=== PATIENT | female | born 1930 | race Caucasian/White ===

== ENCOUNTER 2017-07-07 10:49 | Outpatient (CLI) | payer MEDICARE, OTHER ==
[2016-03-12 15:08] VITALS: BP 147/67
== END 2017-07-07 10:50 ==
LOC: POD 10:49
PROVIDERS: ATTEND Podiatrist Public Medicine
DX: L60.0 Ingrowing nail (principal); B35.1 Tinea unguium; M79.674 Pain in right toe(s); M79.675 Pain in left toe(s); L84 Corns and callosities; M20.42 Other hammer toe(s) (acquired), left foot
CPT/HCPCS: 11721; G0463

== ENCOUNTER 2017-11-25 10:53 | Outpatient (CLI) | payer MEDICARE, OTHER ==
[2016-03-12 15:08] VITALS: BP 147/67
--- NOTE | 2017-11-25 15:28 | Diagnostic Imaging Report ---
WALE STAFF[facility] [address] [facility] [address] [place], [place]. [address] Report Submission Date: Nov 25, 2017 12:10:06 PM SOLE TIER Patient Study Name: EMANUEL REYNA Date: Nov 25, 2017 11:03:15 AM SOLE TIER Modality Type: CT\SR Gender: F Description: CT ARM W/O CONTRAST : 32 Institution: [facility] Physician: WALE STAFFORD Examination: CT right extremity. History: CT RT SHOULDER - NO KNOWN INJURY, PAIN X 2 MONTHS, WORSE WITH LIFTING ASSIST UNDER ARM (Hx) / INFERIOR MEDIAL DISLOCATION OF THE HUMERAL HEAD (DICOM Hx) Comparison exams: None provided. Technique: Axial imaging with sagittal and coronal reconstruction. Findings: Extensive degenerative changes and narrowing involving the glenohumeral articulation. Significant osteophyte formation involving the acromioclavicular joint. No definite avulsed fracture fragments. Significant widening of the humeral acromial space with what appears to be a fluid density. Faint calcific densities involving the margins of the fluid collection. Remainder of the visualized scapula, clavicle, and rib cortical margins are without gross abnormality. Minimal lung dependent atelectasis. No gross effusion. Impression: Advanced articular degenerative changes. No evidence for dislocation or avulsed fracture fragment. Large fluid/soft tissue density superior to the humeral head - likely large joint effusion. If suspected rotator cuff injury and/or labral tear, consider obtaining MRI shoulder or CT arthrogram if clinically warranted. Electronically signed on Nov 25, 2017 12:10:06 PM SOLE TIER by: Wander ANGELES
== END 2017-11-25 10:54 ==
LOC: RAD 10:53
PROVIDERS: ATTEND Family Medicine
DX: M25.411 Effusion, right shoulder (principal)
CPT/HCPCS: 73200

== ENCOUNTER 2018-09-27 12:55 | Emergency (ER) | payer MEDICARE, OTHER ==
--- NOTE | 2018-09-27 13:10 | ED Physician Documentation ---
Altered Mental Status - HISTORIAN Historian: patient, paramedics - [facility] Stated Complaint: "I am having bladder spasms" Chief Complaint: Altered Mental Status Additional Information: Patient presents to ED via EMS from nursing facility. She has had a decline in mental status since Wednesday. For the past 5 days she has been "spacing off" with staff reporting having difficulty "snapping her out of it". Patient complains of bladder spasms, burning with urination, cold like symptoms, hemorrhoids causing pain with BM this morning. Family reports patient has a history of rectal prolapse, bladder prolaspe, and anxiety. Patient denies chest pain, shortness of breath, fever, chills or night sweats. Further comments from family states, ongoing anxiety and difficulty dealing with being in assisted and not being able to walk well. Onset: days ago (5) Duration: gradual onset Last known Well Date: 09/22/18 Last Known Well Time: 17:00 Last known Well Code/Unknown Code: Known Character of Altered Mental Status: other (staying bed ) Context: assisted resident Cognition is Usually: alert, oriented x3 Gait is Usually: walks w/ assistance only Associated Symptoms: decreased ability to walk - ROS EYES/ENT: none CVS/RESP: cough. denies: chest pain, shortness of breath GI/: abdominal pain, problems urinating (dysuria/bladder spasms) MS/SKIN/LYMPH: denies: ankle swelling NEURO/PSYCH: anxiety. denies: headache - PAST HX Past History: other (anxiety) Other History: other (rectal prolapse, uterine prolaspe, frequent UTI) Allergies/Adverse Reactions: Allergies Allergy/AdvReac Type Severity Reaction Status Date / Time rofecoxib Allergy Verified 09/27/18 13:27 Home Medications: Ambulatory Orders Medication Instructions Recorded Aspirin [Humaira] 81 mg PO DAILY 03/13/15 Cholecalciferol (Vitamin D3) 1 tab PO DAILY 09/27/18 [Vitamin D3] Hydrocortisone 2.5% Rectal 28.35 gm RC TID PRN #1 tube 09/27/18 [Proctosol-Hc 2.5% Rectal] Ipratropium/Albuterol Sulfate 3 ml INH PRN PRN 09/27/18 [Duoneb] Mirtazapine [Remeron] 15 mg PO HS #30 tablet 09/27/18 Sertraline HCl [Zoloft] 1 tab PO DAILY 09/27/18 - SOCIAL HX Smoking History: non-smoker Alcohol Use: none Drug Use: none - FAMILY HX Family History: none - VITAL SIGNS Vital Signs: Vital Signs Temp Pulse Resp BP Pulse Ox 98.3 F 86 15 138/61 95 09/27/18 12:55 09/27/18 12:55 09/27/18 12:55 09/27/18 12:55 09/27/18 12:55 - REVIEWED ASSESSMENTS Nursing Assessment Reviewed: Yes Vitals Reviewed: Yes Progress - Progress Progress: 1428 Patient resting comfortably. Discussing results with family. Patient begins to cry, complaining of rectal pain. Patient states she had a very large bowel movement this morning and now her hemorrhoids hurt. 1448 Discussed with family about starting Remeron. They are willing to try anything to help with anxiety. ED Results Lab/Radiology - Lab Results Lab Results: Lab Results 09/27/18 09/27/18 09/27/18 Unknown Unknown Unknown WBC 7.70 K/ul K/ul (4.00-12.00) RBC 4.23 M/ul M/ul (3.90-5.20) Hgb 12.8 g/dL g/dL (12.0-16.0) Hct 38.7 % % (34.5-46.5) MCV 92.0 fl fl (80.0-100.0) MCH 30.3 pg pg (28.0-34.0) MCHC 33.1 g/dL g/dL (30.0-36.0) RDW 13.6 % % (11.3-14.3) Plt Count 306 K/mm3 K/mm3 (130-400) Neut % (Auto) 62.2 % % (39.0-79.0) Lymph % (Auto) 28.5 % % (16.0-50.0) Potter % (Auto) 5.2 % % (0.0-11.0) Eos % (Auto) 3.8 % % (0.0-6.8) Baso % (Auto) 0.3 (0.0-1.5) Neut # (Auto) 4.8 # k/uL # k/uL (1.4-7.7) Lymph # (Auto) 2.2 # k/uL # k/uL (0.6-4.0) Potter # (Auto) 0.4 # k/uL # k/uL (0.0-0.9) Eos # (Auto) 0.3 # k/uL # k/uL (0.0-0.6) Baso # (Auto) 0.0 # k/uL # k/uL (0.0-0.5) Sodium 140 mmol/L mmol/L (136-145) Potassium 4.8 mmol/L mmol/L (3.5-5.1) Chloride 96 mmol/L L mmol/L (98-107) Carbon Dioxide 33 mmol/L H mmol/L (22-30) BUN 25 mg/dL H mg/dL (7-17) Creatinine 1.10 mg/dL H mg/dL (0.52-1.04) Estimated Creat Clear 53 Est GFR ( Amer) > 60 (60 - ) Est GFR (Non-Af Amer) > 60 (60 - ) Glucose 99 mg/dL mg/dL (74-106) Calcium 9.6 mg/dL mg/dL (8.4-10.2) Total Bilirubin 0.6 mg/dL mg/dL (0.2-1.3) AST 30 U/L U/L (15-46) ALT 25 U/L U/L (13-69) Alkaline Phosphatase 104 U/L U/L (38-126) NT-Pro-B Natriuret Pep 906.8 pg/mL H pg/mL (15.0-450.0) Total Protein 7.0 g/dL g/dL (6.3-8.2) Albumin 4.6 g/dL g/dL (3.5-5.0) UA Negative - Radiology Radiology Impressions: Examination: Portable chest History: Evaluate lungs COUGH, CONGESTION, LATHARGY (Hx) Comparison exam: None provided. Findings: Single view of the chest demonstrates a hypoventilated inspiratory effort Sylvian crowding of the cardiac and mediastinal silhouette. Vascular calcifications involving aortic arch. Lung martin without focal infiltrate. No blunting of the costophrenic margins. Articular degenerative changes. Impression: No acute appearing pulmonary process. Electronically signed on Sep 27, 2018 2:13:17 PM CORE WORKER by: Wander Castanon Examination: CT chest History: Cough Comparison exams: Plain film chest dated 27 September 2018 Technique: CT chest without contrast protocol Findings: Chronic parenchymal scarring. No focal consolidative process. Minimal dependent atelectasis. No posterior pleural thickening or effusion. Anterior mediastinum and jose without mass pathologic adenopathy though sensitivity is reduced given exam technique. Thoracic aorta demonstrates peripheral atherosclerotic disease. No aneurysm. Cardiac silhouette is not enlarged. No pericardial effusion. Vascular calcifications. Lower neck structuresare without gross abnormality. Kyphosis. Thoracic vertebral body degenerative changes. Hiatal hernia. Impression: Chronic parenchymal changes and scarring. No acute appearing parenchymal process. Examination: CT Abdomen/pelvis History: Abdominal discomfort. Comparison exams: None available Technique: CT Abdomen/pelvis without contrast protocol. Findings: Liver, spleen, adrenals and pancreas are without gross irregularity. Surgical clips gallbladder fossa. Renal cortical margins are symmetric. No cortical or calyceal calcification. Ureters described a normal course through the abdomen and pelvis. No abnormal dilation. No central calcifications. Ureterovesicular junctions are within normal limits. Pelvic phleboliths. Abdominal aorta demonstrates peripheral atherosclerotic disease. No aneurysm. Bowel unopacified limiting evaluation. No mesenteric inflammatory changes or free fluid. Stool throughout the large bowel. Few small bowel air-fluid levels without abnormal dilation. Osseous structures demonstrate degenerative changes. L5/S1 with feces. Impression: No acute appearing upper abdominal organ inflammatory process given exam technique. Small bowel air-fluid levels however no abnormal dilation. Moderate stool throughout the large bowel. No nephro or ureterolithiasis. Electronically signed on Sep 27, 2018 4:13:43 PM CORE WORKER by: Wander Castanon - Orders Orders: ED Orders Category Date Time Status In & Out Catheter [Urinary catheterization] 1T Care 09/27/18 13:[address] IV Lock 1T Care 09/27/18 12:58 Active CHEST 1VIEW [RAD] Stat Exams 09/27/[address] ABD & PELVIS W/O CON Stat Exams 09/27/[address] CHEST W/O CONTRAST Stat Exams 09/27/18 Taken BLOOD CULTURE Stat Lab 09/27/18 Ordered CBC/PLATELET/DIFF Routine Lab 09/27/18 Completed CMP Routine Lab 09/27/18 Completed NT-proBNP Stat Lab 09/27/18 Completed UA W/MICRO IF INDICATED Routine Lab 09/27/18 13:00 Ordered Mirtazapine [Remeron] Med 09/27/18 14:34 Discontinued 15 mg PO NOW ONE Morphine Sulfate Med 09/27/18 13:43 Discontinued 10 mg .ROUTE .STK-MED ONE Morphine Sulfate Med 09/27/18 13:41 Discontinued 4 mg IVP NOW ONE fentaNYL CITRATE/PF [Duragesic] Med 09/27/18 13:23 Discontinued 25 mcg IVP NOW ONE Altered Mental Status Physical - Physical Exam General Appearance: alert, mild distress Neuro/Psych: anxiety alert, oriented x3 nml as tested Cerebellar Exam: nml as tested Peripheral Exam: motor nml HEENT: GABRIEL Neck: normal inspection, supple Respiratory: no resp distress, rhonchi (bilaterally R>L) CVS: reg rate & rhythm, heart sounds normal Abdomen: tenderness (suprapubic ) Skin: warm/dry, normal color Extremities: non-tender, edema (trace lower extremity edema bilaterally to ankle) Discharge Clincal Impression: Anxiety Hemorrhoids Qualifiers: Hemorrhoid type: unspecified Qualified Code(s): K64.9 - Unspecified hemorrhoids Constipation Qualifiers: Constipation type: unspecified constipation type Qualified Code(s): K59.00 - Constipation, unspecified Prescriptions: Hydrocortisone 2.5% Rectal [Proctosol-Hc 2.5% Rectal] 28.35 gm RC TID PRN #1 tube PRN Reason: Hemorrhoids Mirtazapine [Remeron] 15 mg PO HS #30 tablet Referrals: Aramis Whyte MD [Primary Care Provider] - 2 Days Additional Instructions: 1. Take Miralax, Senokot, Colace as needed daily to maintain daily bowel movements 2. Fleets enema as needed. Proctosol to hemorrhoids every 8 hours as needed. 3. Follow up with PCP within 3 days 4. Return to ED with abdominal pain, abdominal distention, fever >101.5 or any new or worsening symptoms Decision to Admit: NO Date of Decison to Admit: 09/27/18 Decision Time: 16:21
[2018-09-27] MEDS ORDERED: fentaNYL CITRATE/PF 100 MCG/2 ML INJ. IVP ONE (13:23)
[2018-09-27 13:24] LABS: BASOPHILS % 0.3 (0.0-1.5); EOSINOPHILS % 3.8 % (0.0-6.8); MEAN CORPUSCULAR HEMOGLOBIN 30.3 pg (28.0-34.0); MONOCYTES % 5.2 % (0.0-11.0); NEUTROPHILS # 4.8 # k/uL (1.4-7.7)
[2018-09-27] MEDS ORDERED: MORPHINE SULFATE 4 MG/ML PREFILLED SYR IVP ONE (13:41)
[2018-09-27] MEDS ORDERED: MORPHINE SULFATE 10 MG/ML VIAL ONE (13:43)
[2018-09-27 13:48] LABS: eGFR (Non-African) > 60
[2018-09-27] MEDS ORDERED: MIRTAZAPINE 15 MG TABLET PO ONE (14:34)
--- NOTE | 2018-09-27 14:36 | Diagnostic Imaging Report ---
AMRITA DEL VALLE [facility] [address] [facility] [address] [place], [place]. [address] Report Submission Date: Sep 27, 2018 2:13:17 PM FANS CLERK Patient Study Name: EMANUEL REYNA Date: Sep 27, 2018 1:46:23 PM FANS CLERK Modality Type: DX Gender: F Description: CHEST : 32 Institution: [facility] Physician: AMRITA DEL VALLE Examination: Portable chest History: Evaluate lungs COUGH, CONGESTION, LATHARGY (Hx) Comparison exam: None provided. Findings: Single view of the chest demonstrates a hypoventilated inspiratory effort Sylvian crowding of the cardiac and mediastinal silhouette. Vascular calcifications involving aortic arch. Lung martin without focal infiltrate. No blunting of the costophrenic margins. Articular degenerative changes. Impression: No acute appearing pulmonary process. Electronically signed on Sep 27, 2018 2:13:17 PM FANS CLERK by: Wander ANGELES
--- NOTE | 2018-09-27 16:25 | Diagnostic Imaging Report ---
AMRITA DEL VALLE [facility] [address] [facility] [address] [place], [place]. [address] Report Submission Date: Sep 27, 2018 4:13:43 PM SHELL MOLD BONDING MACHINE OPERATOR Patient Study Name: EMANUEL REYNA Date: Sep 27, 2018 2:41:00 PM SHELL MOLD BONDING MACHINE OPERATOR Modality Type: CT\SR Gender: F Description: CHEST/ABDOMEN/PELVIS W/O : 32 Institution: [facility] Physician: AMRITA DEL VALLE Examination: CT chest History: Cough Comparison exams: Plain film chest dated 27 September 2018 Technique: CT chest without contrast protocol Findings: Chronic parenchymal scarring. No focal consolidative process. Minimal dependent atelectasis. No posterior pleural thickening or effusion. Anterior mediastinum and jose without mass pathologic adenopathy though sensitivity is reduced given exam technique. Thoracic aorta demonstrates peripheral atherosclerotic disease. No aneurysm. Cardiac silhouette is not enlarged. No pericardial effusion. Vascular calcifications. Lower neck structuresare without gross abnormality. Kyphosis. Thoracic vertebral body degenerative changes. Hiatal hernia. Impression: Chronic parenchymal changes and scarring. No acute appearing parenchymal process. Examination: CT Abdomen/pelvis History: Abdominal discomfort. Comparison exams: None available Technique: CT Abdomen/pelvis without contrast protocol. Findings: Liver, spleen, adrenals and pancreas are without gross irregularity. Surgical clips gallbladder fossa. Renal cortical margins are symmetric. No cortical or calyceal calcification. Ureters described a normal course through the abdomen and pelvis. No abnormal dilation. No central calcifications. Ureterovesicular junctions are within normal limits. Pelvic phleboliths. Abdominal aorta demonstrates peripheral atherosclerotic disease. No aneurysm. Bowel unopacified limiting evaluation. No mesenteric inflammatory changes or free fluid. Stool throughout the large bowel. Few small bowel air-fluid levels without abnormal dilation. Osseous structures demonstrate degenerative changes. L5/S1 with feces. Impression: No acute appearing upper abdominal organ inflammatory process given exam technique. Small bowel air-fluid levels however no abnormal dilation. Moderate stool throughout the large bowel. No nephro or ureterolithiasis. Electronically signed on Sep 27, 2018 4:13:43 PM SHELL MOLD BONDING MACHINE OPERATOR by: Wander ANGELES
--- NOTE | 2018-09-27 16:26 | Diagnostic Imaging Report ---
AMRITA DEL VALLE [facility] [address] [facility] [address] [place], [place]. [address] Report Submission Date: Sep 27, 2018 4:13:43 PM O AND M SUPERVISOR Patient Study Name: EMANUEL REYNA Date: Sep 27, 2018 2:41:00 PM O AND M SUPERVISOR Modality Type: CT\SR Gender: F Description: CHEST/ABDOMEN/PELVIS W/O : 32 Institution: [facility] Physician: AMRITA DEL VALLE Examination: CT chest History: Cough Comparison exams: Plain film chest dated 27 September 2018 Technique: CT chest without contrast protocol Findings: Chronic parenchymal scarring. No focal consolidative process. Minimal dependent atelectasis. No posterior pleural thickening or effusion. Anterior mediastinum and jose without mass pathologic adenopathy though sensitivity is reduced given exam technique. Thoracic aorta demonstrates peripheral atherosclerotic disease. No aneurysm. Cardiac silhouette is not enlarged. No pericardial effusion. Vascular calcifications. Lower neck structuresare without gross abnormality. Kyphosis. Thoracic vertebral body degenerative changes. Hiatal hernia. Impression: Chronic parenchymal changes and scarring. No acute appearing parenchymal process. Examination: CT Abdomen/pelvis History: Abdominal discomfort. Comparison exams: None available Technique: CT Abdomen/pelvis without contrast protocol. Findings: Liver, spleen, adrenals and pancreas are without gross irregularity. Surgical clips gallbladder fossa. Renal cortical margins are symmetric. No cortical or calyceal calcification. Ureters described a normal course through the abdomen and pelvis. No abnormal dilation. No central calcifications. Ureterovesicular junctions are within normal limits. Pelvic phleboliths. Abdominal aorta demonstrates peripheral atherosclerotic disease. No aneurysm. Bowel unopacified limiting evaluation. No mesenteric inflammatory changes or free fluid. Stool throughout the large bowel. Few small bowel air-fluid levels without abnormal dilation. Osseous structures demonstrate degenerative changes. L5/S1 with feces. Impression: No acute appearing upper abdominal organ inflammatory process given exam technique. Small bowel air-fluid levels however no abnormal dilation. Moderate stool throughout the large bowel. No nephro or ureterolithiasis. Electronically signed on Sep 27, 2018 4:13:43 PM O AND M SUPERVISOR by: Wander ANGELES
[2018-09-27 16:59] VITALS: BP 141/58
[2018-09-28 15:38] LABS: APPEARANCE,URINE CLEAR (CLEAR); COLOR,URINE YELLOW (YELLOW); OCCULT BLOOD,URINE TRACE-LYSED (NEGATIVE); UROBILINOGEN URINE 0.2 Eu (0.2-1.0)
== END 2018-09-27 16:56 | disposition home or self-care (01) ==
LOC: ED 12:55
DX: F41.9 Anxiety disorder, unspecified (principal); K64.9 Unspecified hemorrhoids; K59.00 Constipation, unspecified
CPT/HCPCS: 36415; 51701; 71045; 71250; 74176; 80053; 81002; 83880; 85025; 87040; 96374; 99283; 99285; J2270; S1016

== ENCOUNTER 2019-04-27 10:22 | Outpatient (CLI) | payer MEDICARE, OTHER ==
[2019-04-27 11:02] LABS: BASOPHILS % 0.3 % (0.0-1.5); NEUTROPHILS # 2.8 # k/uL (1.4-7.7)
[2019-04-27 11:03] LABS: eGFR (Non-African) > 60
== END 2019-04-27 10:24 ==
LOC: LAB 10:22
PROVIDERS: ATTEND Family Medicine
DX: K21.9 Gastro-esophageal reflux disease without esophagitis (principal); E21.3 Hyperparathyroidism, unspecified; G62.9 Polyneuropathy, unspecified
CPT/HCPCS: 80053; 85025

== ENCOUNTER 2019-10-03 16:27 | Outpatient (CLI) | payer MEDICARE, OTHER ==
[2019-10-03 17:04] LABS: eGFR (Non-African) > 60
[2019-10-04 09:42] LABS: HYPOCHROMASIA 1+ (NEGATIVE); SEGMENTED NEUTROPHILS % 71 % (39-79)
[2019-10-05 07:32] LABS: NEUTROPHILS # 5.3 # k/uL (1.4-7.7)
== END 2019-10-03 16:32 ==
LOC: LAB 16:27
PROVIDERS: ATTEND Family Medicine
DX: I10 Essential (primary) hypertension (principal)
CPT/HCPCS: 80053; 83880; 85025